=== PATIENT | male | born 1960 | race Caucasian/White ===

== ENCOUNTER 2021-05-10 09:38 | Outpatient (CLI) | payer BC | END 2021-05-10 09:39 | disposition home or self-care (01) | LOC: DTY/OP 09:38 | PROVIDERS: ATTEND Surgery | DX: E66.01 Morbid (severe) obesity due to excess calories (principal) | CPT/HCPCS: 97802 ==

== ENCOUNTER 2021-06-18 08:29 | Outpatient (CLI) | payer BC ==
[2021-06-18 11:23] LABS: #Basophils 0.1 10x3/uL (0.0-0.2); #Eosinphils 0.2 10x3/uL (0.0-0.5); #Monocytes 0.8 10x3/uL (0.0-1.1); #Neutrophils 7.1 10x3/uL (1.5-8.4); %Basophils 0.6 % (0.0-2.0); %Lymphocytes 25.9 % (18.0-47.0); %Monocytes 7.2 % (0.0-10.0); %Neutrophils 63.8 % (40.0-75.0); Hemoglobin 16.3 g/dL (13.5-17.5); Mean Corpuscular HGB CONC 33.7 g/dL (32.0-36.0); Mean Corpuscular Hemoglobin 30.8 pg (27.0-33.0); Mean Corpuscular Volume 91.3 fl (81.2-95.1); Mean Platelet Volume 10.4 fl (7.4-10.4); Platelet Count 388 10x3/uL (150-450); Red Blood Cell (RBC) Count 5.29 10x6/uL (4.32-5.72); White Blood Cell (WBC) Count 11.1 10x3/uL (3.5-10.5)
[2021-06-18 11:46] LABS: ALT (SGPT) 40 U/L (8-55); AST (SGOT) 33 U/L (5-34); Albumin 4.2 g/dL (3.4-4.8); Alkaline Phosphatase 83 U/L (40-110); Anion Gap 14 mmol/L (10-20); BUN (Urea Nitrogen) 24 mg/dL (8.4-25.7); Bilirubin, Total 1.5 mg/dL (0.2-1.2); Calc. Creatinine Clearance 0 mL/min (70-130); Calcium 9.3 mg/dL (7.8-10.44); Carbon Dioxide 27 mmol/L (23-31); Chloride 104 mmol/L (98-107); Globulin 2.6 g/dL (2.4-3.5); Glucose 73 mg/dL (80-115); Potassium 4.7 mmol/L (3.5-5.1); Protein, Total 6.8 g/dL (5.8-8.1); Sodium 140 mmol/L (136-145)
[2021-06-18 15:29] LABS: Hemoglobin A1c 6.3 % (4.0-6.0)
[2021-06-18 21:43] LABS: SARS-CoV-2 PCR by NAA Not Detected (NotDetected)
== END 2021-06-18 08:30 | disposition home or self-care (01) ==
LOC: LABBT 08:29
PROVIDERS: ATTEND Surgery
DX: Z01.818 Encounter for other preprocedural examination (principal); Z20.822 Contact with and (suspected) exposure to COVID-19
CPT/HCPCS: 71046; 80053; 83036; 85025; U0003; U0005

== ENCOUNTER 2021-06-23 07:36 | Inpatient (IN) | payer BC ==
[2021-06-22 09:54] VITALS: BMI 35.4
[2021-06-23] MEDS ORDERED: ceFAZolin 2 GM/DEX 5% 100 ML BAG ONE (08:46)
[2021-06-23] MEDS ORDERED: Lidocaine 1% w/Epinephrine 1:100K 20 ML VIAL ONE (09:18)
[2021-06-23] MEDS ORDERED: Bupivacaine 0.25% 10 ML VIAL ONE (09:18)
[2021-06-23] MEDS ORDERED: Midazolam HCl 2 mg/2 ml Vial ONE (09:45)
[2021-06-23] MEDS ORDERED: Fentanyl 250 MCG/5 ML VIAL ONE (09:45)
[2021-06-23] MEDS ORDERED: Heparin 1,000 UNITS/ML VIAL ONE (09:47)
[2021-06-23] MEDS ORDERED: Heparin 5,000 UNITS/ML VIAL ONE (09:48)
[2021-06-23] MEDS ORDERED: Ketorolac Tromethamine 30 MG/ML VIAL ONE (09:59)
[2021-06-23] MEDS ORDERED: Lidocaine 1% PF 5 ML VIAL ONE (09:59)
[2021-06-23] MEDS ORDERED: PROPOFOL 200 MG/20 ML VIAL ONE (09:59)
[2021-06-23] MEDS ORDERED: Rocuronium Bromide 10 MG/ML (10ML VIAL) ONE (09:59)
[2021-06-23] MEDS ORDERED: Ondansetron PF 4 MG/2 ML Vial ONE (09:59)
[2021-06-23] MEDS ORDERED: Glycopyrrolate 0.2 MG/ML 5 ML SYRINGE ONE (09:59)
[2021-06-23] MEDS ORDERED: Dexamethasone 20 MG/5 ML VIAL ONE (09:59)
[2021-06-23] MEDS ORDERED: HYDROmorphone 2 MG/ML VIAL SLOW IVP PRN (11:10)
[2021-06-23] MEDS ORDERED: Promethazine HCl 25 MG/ML VIAL IVPB PRN (11:10)
[2021-06-23] MEDS ORDERED: Ondansetron HCl/PF 4 MG/2 ML Vial IVP PRN (11:10)
[2021-06-23] MEDS ORDERED: Promethazine HCl 25 MG/ML VIAL IM PRN ×3 (11:10→12:29)
[2021-06-23] MEDS ORDERED: Ondansetron PF 4 MG/2 ML Vial IVP PRN ×2 (11:35→12:29)
[2021-06-23] MEDS ORDERED: Dextrose 50% Abboject 50 ML SYRINGE SLOW IVP PRN (11:35)
[2021-06-23] MEDS ORDERED: diphenhydrAMINE 50 MG/ML VIAL IVP PRN ×2 (11:35→12:29)
[2021-06-23] MEDS ORDERED: hydrALAZINE 20 MG/ML VIAL SLOW IVP PRN (11:35)
[2021-06-23] MEDS ORDERED: Hydrocodone-Acetamin 15 ML UDCUP PO PRN ×2 (11:35→15:10)
[2021-06-23] MEDS ORDERED: Dextrose 5% in Water 1,000 ML IV PRN (11:35)
[2021-06-23] MEDS ORDERED: Fentanyl 100 MCG/2 ML VIAL ONE ×2 (12:00→12:54)
[2021-06-23] MEDS ORDERED: Zolpidem Tartrate 5 MG TAB PO PRN (12:29)
[2021-06-23] MEDS ORDERED: diphenhydrAMINE 50 MG/ML VIAL IM PRN (12:29)
[2021-06-23] MEDS ORDERED: diphenhydrAMINE 25 MG CAP PO PRN (12:29)
[2021-06-23] MEDS ORDERED: Naloxone HCl 0.4 mg/ml Vial IV PRN (12:29)
[2021-06-23] MEDS ORDERED: fentaNYL Citrate/PF 2,000 MCG in Sodium Chloride 0.9% 60 ML IV PRN (12:29)
[2021-06-23] MEDS ORDERED: Communication Order-Pharmacy FS SCH (12:30)
[2021-06-23] MEDS ORDERED: D5 1/2 NS w/20 mEq KCL 1,000 ML ONE (13:13)
[2021-06-23] MEDS: D5 1/2 NS w/20 mEq KCL 1,000 ML IV SCH ×2 (15:22→21:22)
[2021-06-23] MEDS: ceFAZolin Sodium/D5W 2 GM in Premix Bag 1 BAG IVPB SCH ×2 (15:25→21:22)
[2021-06-23] MEDS: Ketorolac Tromethamine 30 MG/ML VIAL IVP SCH ×3 (15:25→23:12)
[2021-06-23] MEDS ORDERED: CEFAZOLIN 2 GM in Premix Bag 1 BAG IVPB SCH (17:00)
[2021-06-24] MEDS: D5 1/2 NS w/20 mEq KCL 1,000 ML IV SCH (03:52)
[2021-06-24] MEDS: Ketorolac Tromethamine 30 MG/ML VIAL IVP SCH (05:50)
[2021-06-24 07:09] LABS: #Lymphocytes 1.8 thou/uL (1.20-3.40); #Monocytes 1.3 thou/uL (0.11-0.59); #Neutrophils 10.8 thou/uL (1.40-6.50); %Basophils 0.2 % (0.0-1.0); %Eosinophils 0.2 % (0.0-10.0); %Lymphocytes 13.1 % (21.0-51.0); %Monocytes 9.3 % (0.0-10.0); %Neutrophils 77.3 % (42.0-75.0); Hemoglobin 15.1 g/dL (14.0-18.0); Mean Corpuscular HGB CONC 34.4 g/dL (32.0-36.0); Mean Corpuscular Hemoglobin 32.7 pg (27.0-31.0); Mean Corpuscular Volume 94.9 fL (78.0-98.0); Mean Platelet Volume 8.4 fL (7.4-10.4); Platelet Count 270 thou/uL (130-400); RBC Distribution Width 12.2 % (11.5-14.5); Red Blood Cell (RBC) Count 4.63 mill/uL (4.70-6.10)
[2021-06-24 07:19] LABS: Anion Gap 13 mmol/L (10-20); BUN (Urea Nitrogen) 12 mg/dL (8.4-25.7); Calc. Creatinine Clearance 156 mL/min (70-130); Calcium 8.9 mg/dL (7.8-10.44); Carbon Dioxide 22 mmol/L (23-31); Chloride 104 mmol/L (98-107); Glucose 98 mg/dL (80-115); Sodium 135 mmol/L (136-145)
[2021-06-24 08:13] VITALS: BP 133/78; TEMP 97.7
[2021-06-24] MEDS ORDERED: Pantoprazole 40 MG VIAL IVP SCH (09:00)
[2021-06-24] MEDS ORDERED: Enoxaparin Sodium 40 MG/0.4 ML SYRINGE SC SCH (21:00)
[2021-06-26] MEDS ORDERED: FLU VACC QS2021-22(6MOS UP)/PF 60 MCG/0.5 ML SYRINGE IM ONE (20:00)
== END 2021-06-24 11:15 | disposition home or self-care (01) | DRG 621 ==
LOC: SDC 07:36 → SURG A 11:36
PROVIDERS: ADMIT Surgery; ATTEND Surgery
PROC: 0DB64Z3 Excision of Stomach, Percutaneous Endoscopic Approach, Vertical (ICD-10-PCS; principal; 2021-06-23)
PROC: 0DJ08ZZ Inspection of Upper Intestinal Tract, Via Natural or Artificial Opening Endoscopic (ICD-10-PCS; 2021-06-23)
DX: E66.01 Morbid (severe) obesity due to excess calories (principal); Z68.35 Body mass index [BMI] 35.0-35.9, adult; I10 Essential (primary) hypertension; M19.90 Unspecified osteoarthritis, unspecified site; E78.5 Hyperlipidemia, unspecified; G47.33 Obstructive sleep apnea (adult) (pediatric); Z79.82 Long term (current) use of aspirin; Z79.899 Other long term (current) drug therapy; Z98.41 Cataract extraction status, right eye; Z98.42 Cataract extraction status, left eye; Z99.81 Dependence on supplemental oxygen
CPT/HCPCS: 36415; 80048; 85025; 88307; 94760; C1713; J0690; J1100; J1644; J1885; J2250; J2405; J2704; J3010; J3480; J3490; S0020